=== PATIENT | male | born 1970 | race Caucasian/White ===

== ENCOUNTER 2018-01-22 06:37 | Inpatient (IN) | payer SELFPAY ==
[2018-01-22] VITALS (15 sets, daily range): BP systolic 105–138; BP diastolic 55–103; PULSE 85–105; RESP 14–28; TEMP 36.8–39.6; O2SAT 95–100; BMI 26.6; BMI 25.7
--- NOTE | 2018-01-22 07:20 | DI.RAD.S_ITS ---
PROCEDURE: XR CHEST 2V INDICATIONS: chest pain TECHNIQUE: 2 views of the chest were acquired. COMPARISON: None. FINDINGS: Surgical changes and devices: None. Lungs and pleura: No pleural effusions or pneumothorax. Lungs are abnormal with a mild bilateral pneumonia pattern, right slightly greater than left. Mediastinum: Mediastinal contours are normal. Heart size is normal. Bones and chest wall: No suspicious bony abnormalities. Soft tissues appear unremarkable. IMPRESSION: Bilateral basilar pneumonia, right greater than left. Alveolar infiltration, mild in overall severity, is present, and the appearance can be seen in the setting of atypical pneumonia including viral pneumonia. Dictated by: Niles Arriola M.D. on 01/22/2018 at 9:30 Approved by: Niles Arriola M.D. on 01/22/2018 at 9:31
--- NOTE | 2018-01-22 07:20 | DI.CT.S_ITS ---
PROCEDURE: CT SOFT TISSUE NECK W CON INDICATIONS: Peritonsillar abscess, retropharyngeal abscess may be present. Pt w/ trismus and fever TECHNIQUE: After the administration of intravenous contrast, 3.0 mm axial sections acquired from the sella to the aortic arch. Additional oblique axial 3.0 mm sections acquired through the pharynx. 3 mm thick coronal and sagittal reformats were generated. For radiation dose reduction, the following was used: automated exposure control. COMPARISON: [facility], CR, XR CHEST 2V, 01/22/2018, 6:59. FINDINGS: Image quality: Excellent. Lymph nodes: There is an increased number of small nodes and several mildly enlarged lymph nodes seen throughout the neck bilaterally. None of these appear centrally necrotic, several of them show slight edema along their margins in the adjacent fatty soft tissues. Vessels: Visualized vasculature appears patent. Neck spaces: The oropharynx, nasopharynx, and pharynx demonstrate no mucosal lesions. The vocal cords, false vocal cords, pyriform sinuses, epiglottis, vallecula, and tongue base all appear normal. Extramucosal spaces appear free of abscess formation but there is enlargement of the tonsillar pillars bilaterally, which appear heterogeneous internally, slightly greater in size on the right than the left, and enlarged overall. This does narrow this portion of the airway circumferentially, right greater than left. Glands: The parotid and submandibular glands appear normal on the right but the parotid gland is fatty atrophy of the left, chronic in appearance. Thyroid gland appears normal. Miscellaneous: Visualized brain and orbits appear normal. Lung apices appear clear. Superficial soft tissues appear normal. Note is made of generalized mucosal thickening involving the left maxillary sinus, without air fluid level. Bones: No suspicious bony lesions. Visualized sinuses and mastoids appear unremarkable. IMPRESSION: 1. Prominent asymmetric right greater than left peritonsillar soft tissue edema, narrowing the adjacent airway, with an appearance suggestive of soft tissue infection which has not progressed abscess formation. Early phlegmon is suspected as cause of the heterogeneity within the soft tissues in these areas. 2. There is adenopathy bilaterally, comprised of both an increased number of small nodes and several enlarged nodes measuring up to 1.6 cm in maximal short axis dimension. None of these nodes appear centrally necrotic, the appearance is more likely reactive to infection rather than malignant involvement. 3. Incidental load is made of generalized fatty atrophy of the left parotid gland. No associated ductal calculus or evidence of active inflammation is associated. The salivary glands elsewhere appear normal. Note: Findings immediately called to the emergency room and discussed in detail personally with the emergency room physician caring for the patient. Dictated by: Niles Arriola M.D. on 01/22/2018 at 9:13 Approved by: Niles Arriola M.D. on 01/22/2018 at 9:29
[2018-01-22] MEDS: SODIUM CHLORIDE 0.9% 1,000 ML 1000 ML IV ×2 (07:43→08:37)
[2018-01-22 07:49] LABS: Add Manual Diff / Slide Review NO; Basophils Percent Auto 0.4 % (0-2); Hematocrit 42.3 % (41-53); Hemoglobin 14.7 g/dL (13.5-17.5); Lymphocytes Percent Auto 7.4 % (25-40); Mean Corpuscular HGB Conc 34.7 % (30-36); Mean Corpuscular Hemoglobin 29.4 PG (26-34); Mean Corpuscular Volume 84.9 fL (80-100); Monocytes Percent Auto 9.4 % (3-14); Neutrophils Absolute Auto 17100 /uL (3000-5900); Neutrophils Percent Auto 82.8 % (50-75); Platelet Count 194 X10^3/uL (150-400); Red Blood Cell Count 4.99 X10^6/uL (4.5-5.9); Red Cell Distribution Width 13.3 % (11.6-14.8); White Blood Cell Count 20.7 X10^3/uL (4.5-11.0)
[2018-01-22 07:54] LABS: INR 1.6 (0.9-1.3); Prothrombin Time 17.4 SECONDS (10.1-12.7)
[2018-01-22] MEDS: PIPERACILLIN-TAZO 4.5 GM/100 ML FROZ.PIGGY IV (07:56)
--- NOTE | 2018-01-22 07:57 | PC.NURSE ---
starting IV Zosyn after two sets of blood cultures obtained. Flu swab from nasal obtained and sent out to lab.
[2018-01-22 08:00] LABS: Lactate (Lactic Acid) 0.8 mmol/L (0.7-2.1)
[2018-01-22 08:01] LABS: Alanine Aminotransferase 35 IU/L (21-72); Albumin 4.4 g/dL (3.5-5.0); Albumin Globulin Ratio 1.5 (1.0-2.8); Alkaline Phosphatase 84 U/L (38-126); Aspartate Aminotransferase 26 IU/L (17-59); Bilirubin Total 1.5 mg/dL (0.2-1.3); Blood Urea Nitrogen 16 mg/dL (9-20); Carbon Dioxide 23 mmol/L (22-32); Chloride 94 mmol/L (98-107); Estimated Glomerular Filt Rate > 60.0 mL/min (>60); Glucose 108 mg/dL (70-100); HEMOLYSIS < 15 (0-50); Lipase 14 U/L (23-300); Potassium 3.6 mmol/L (3.4-5.1); Sodium 131 mmol/L (137-145); Total Protein 7.4 g/dL (6.3-8.2)
[2018-01-22] MEDS: ACETAMINOPHEN 325 MG TABLET 650 MG PO ×3 (08:13→21:33)
[2018-01-22 08:16] LABS: Procalcitonin 0.44 ng/mL (<0.5)
[2018-01-22 08:17] LABS: Influenza A and B by PCR Rapid Negative (Negative)
--- NOTE | 2018-01-22 08:20 | PC.NURSE ---
pt has difficult time opening his mouth for exam with strong gag reflex. +strong foul breaths noticed. pt has rigor and shakes. T=102.5 when repeated.
[2018-01-22 09:19] LABS: Bilirubin Urine UA NEGATIVE (NEGATIVE); Color Urine UA YELLOW; Glucose Urine UA NEGATIVE (Normal); Ketones Urine UA 3+ (NEGATIVE); Leukocyte Esterase Urine UA NEGATIVE (NEGATIVE); Nitrite Urine UA Negative (Negative); Occult Blood Urine UA 2+ (Negative); Protein Urine UA 1+ (Negative); Urobilinogen Urine UA 0.2 E.U./dL (0.2); pH Urine UA 5.5 (4.5-8.0)
[2018-01-22 09:52] LABS: Appearance Urine UA Slightly Cloudy
--- NOTE | 2018-01-22 10:00 | PC.NURSE ---
Pt's roommate called and left a msg. Harriett, Pt's roommate called to ask questions on pt's mental status. Noticed, pt was seemed to be talking to himself and tends to startle frequetnly when assumed care of pt. Pt asked about auditory hallucinations, pt states they're all gone now. Pt oriented to place, person, but not person. Pt's temp improved and appears to be more alert when aroused from resting by verbal commands. Per pt's roommate Harriett, pt has hx of HIV POS but no hx of mental illness. Pt tends to get sick fast and recent hospitalization in OR for 1-2 days with flu in August. Harriett thinks pt has been current with his medications for HIV but pt denied any taking meds at this time. informed the above.
[2018-01-22 10:01] LABS: Bacteria Urine Few (2-10); Culture Indicated Urine Cult Not Indicated; RBC Urine 0-1/HPF (0-5/HPF); Squamous Epithelial Cell Urine 0-1 /HPF; WBC Urine 0-1/HPF (0-5/HPF)
--- NOTE | 2018-01-22 10:01 | ED_ITS ---
HPI - Fever General Chief Complaint: Fever Stated Complaint: Sore throat, vomiting Time Seen by Provider: 01/22/18 06:57 History of Present Illness HPI Narrative: HPI 47-year-old male with history of HLD (self terminated medications) presents for evaluation of 3-4 days of gradually progressive sore throat, cough, intermittent vomiting, fevers, shaking chills, and malaise. Denies dysuria, neck stiffness, rash, recent travel - although is visiting from [place] to show a dog. M/S/F/SocHx notable for: please see HPI; remainder reviewed with patient and in chart. ROS: Negative constitutional, eye, cardiovascular, pulmonary, GI, , MSK, skin , neurologic, psychiatric, endocrine unless noted in the HPI. Exam Gen: pleasant, unwell -appearing, laying on left side covered in blankets, shaking. HEENT: NC, AT, PEERL, EOMI, neck supple, no goiter appreciated. Unable to fully visualize posterior oropharynx, patient gagging, withdrawing, enclosing mouth, decreased job mobility, floor the mouth soft without swelling. Resp: Clear to auscultation bilaterally, normal work of breathing, no accessory muscle usage. Card: Regular rate and rhythm with no murmurs, rubs, or gallops, extremities warm and well perfused. GI: nontender, nondistended. : No suprapubic tenderness to palpation. MSK: No visible deformities, strength and tone without visually appreciable deficit. Skin: Normal color, no petechiae, no visible lesions. Neuro: AOx3, no facial asymmetry, vision and hearing WNL. Psych: Mood and affect appropriate. Labs / Imaging (pertinent): WBC 20.7, Hb 14.7, PLT 194, PT/INR 1.6, Na 131, K 3.6, Bilirubin 1.5, AST 26, ALT 35, Lactate 0.8, procalcitonin 0.44, lipase 14, influenza negative, TSH 0.60 , HIV pending. UA: negative bacteria, negative nitrites, negative leukocyte esterase, [address] neck (w/ contrast): 1. Prominent asymmetric right greater than left peritonsillar soft tissue edema , narrowing the adjacent airway, with an appearance suggestive of soft tissue infection which has not progressed abscess formation. Early phlegmon is suspected as cause of the heterogeneity within the soft tissues in these areas. 2. There is adenopathy bilaterally, comprised of both an increased number of small nodes and several enlarged nodes measuring up to 1.6 cm in maximal short axis dimension. None of these nodes appear centrally necrotic, the appearance is more likely reactive to infection rather than malignant involvement. 3. Incidental load is made of generalized fatty atrophy of the left parotid gland. No associated ductal calculus or evidence of active inflammation is associated. The salivary glands elsewhere appear normal. CXR: Bilateral basilar pneumonia, right greater than left. Alveolar infiltration, mild in overall severity, is present, and the appearance can be seen in the setting of atypical pneumonia including viral pneumonia. MDM Previous chart, nursing note, labs, imaging, and vitals reviewed. A: 47-year-old male with history of HLD (self terminated medications) presents for evaluation of 3-4 days of gradually progressive sore throat, cough, intermittent vomiting, fevers, shaking chills, and malaise. . Evaluation: Patient meets [facility] sepsis screening guidelines (T > 38?C or T < 36?C, HR > 90, RR > 20 or PaCO2 < 32 mmHg, WBC > 12k, < 4k, or >10% bands), source as below. DoesDoes not meet qSOFA criteria with a score of 1 - AMS, 1 - RR = 22, 1 - SBP < 100NOTE: = 2 is high risk for poor outcome. Infectious Source: patient of cough, sore throat, and mild trismus. Imaging with right-sided peritonsillar phlegmon, no evidence of Lemierre's disease or drainable abscess. Patient's roommate provided unsolicited information that patient is believed to have HIV, is not currently on medications. Patient denies a history of HIV, verbally consented to testing, pending at time of admission. Resuscitation: Blood cultures, 2 L NS, and 4.5 g Zosyn ordered with the initial evaluation. Disposition: admitted for further care. Impression: peritonsillar phlegmon, sepsis (please reference below for remainder of encounter information) Critical Care Time Organ system(s): Cardiopulmonary, vascular, TRAINING FACILITATOR, Renal Intervention: Assessment of the patient, interpretation of studies, communication related to patient care. Time: 30 minutes were spent directly related to patient care exclusive of separately billed procedures The patient is also without evidence of pancreatitis (lipase within clinically acceptable limits), adrenal insufficiency is tentatively considered unlikely as there is no evidence of chronic steroid use, no known adrenal insufficiency and the patient has been without refractory hypotension. Thyroid disease was considered, given the absence of known thyroid disease or goiter on exam, and a tentatively explaining etiology for the patient?s presentation further investigation is not currently indicated. Ingestion/OD are felt to be unlikely given history, absence of significant mydriasis, and lack of appreciated clonus or hyperreflexia, as well as an alternate explaining etiology.The possibility of alcohol, benzodiazepine, opiate withdrawal were considered and while history is limited at this point these do not appear to be contributing. Related Data Home Medications Medication Instructions Recorded Confirmed No Known Home Medications 01/22/18 01/22/18 Allergies Allergy/AdvReac Type Severity Reaction Status Date / Time No Known Drug Allergies Allergy Verified 01/22/18 07:05 [facility] Medical History High cholesterol (Acute) Exam Initial Vital Signs Initial Vital Signs: Vital Signs Temperature 100.2 F H 01/22/18 06:44 Pulse Rate 105 H 01/22/18 06:44 Respiratory Rate 28 H 01/22/18 06:44 Blood Pressure 138/103 H 01/22/18 06:44 Pulse Oximetry 99 01/22/18 06:44 Course Orders Ordered: ED Orders 01/22/18 07:20 CT soft tissue neck w con Stat XR chest 2V Stat 01/22/18 07:30 Complete Blood Count AUTO DIFF Stat Comprehensive Metabolic Panel Stat HIV 1 and 2 Antibody Stat Lactate (Lactic Acid) Stat Lipase Stat Procalcitonin Stat Prothrombin Time INR Stat Thyroid Stimulating Hormone Stat 01/22/18 07:50 Blood Culture Stat 01/22/18 07:55 Influenza A and B by PCR Rapid Stat 01/22/18 09:00 Urinalysis and Microscopic Stat Urine Drug Screen, Rapid Stat Discontinued Medications Acetaminophen (Tylenol) 650 mg PO NOW ONE Stop: 01/22/18 07:59 Last Admin: 01/22/18 08:13 Dose: 650 mg Piperacillin/Tazobactam/Dextrose (Zosyn) 4.5 gm in 100 mls @ 200 mls/hr IV NOW ONE Stop: 01/22/18 07:49 Last Infusion: 01/22/18 09:07 Dose: 0 mls/hr Admin: 01/22/18 07:56 Dose: 200 mls/hr Sodium Chloride (Normal Saline 0.9%) 1,000 mls @ 1,000 mls/hr IV BOLUS ONE Stop: 01/22/18 08:19 Last Infusion: 01/22/18 08:36 Dose: 0 mls/hr Admin: 01/22/18 07:43 Dose: 1,000 mls/hr Sodium Chloride (Normal Saline 0.9%) 1,000 mls @ 1,000 mls/hr IV BOLUS ONE Stop: 01/22/18 08:21 Last Infusion: 01/22/18 09:15 Dose: 0 mls/hr Admin: 01/22/18 08:37 Dose: 1,000 mls/hr Vital Signs - 8 hr 01/22/18 06:44 01/22/18 07:30 01/22/18 08:30 Temperature 100.2 F H 102.5 F H 100.7 F H Pulse Rate 105 H 105 H 103 H Respiratory Rate 28 H 20 15 Blood Pressure 138/103 H Blood Pressure [Left Arm] 136/71 H 113/69 Pulse Oximetry 99 98 98 01/22/18 09:45 Temperature 100.7 F H Pulse Rate Respiratory Rate Blood Pressure Blood Pressure [Left Arm] Pulse Oximetry MDM - Fever Lab Data Result diagrams: 01/22/18 07:30 01/22/18 07:30 Lab Results 01/22/18 01/22/18 01/22/18 Range/Units 07:30 07:30 07:30 WBC 20.7 H (4.5-11.0) X10^3/uL RBC 4.99 (4.5-5.9) X10^6/uL Hgb 14.7 (13.5-17.5) g/dL Hct 42.3 (41-53) % MCV 84.9 (80-100) fL MCH 29.4 (26-34) PG MCHC 34.7 (30-36) % RDW 13.3 (11.6-14.8) % Plt Count 194 (150-400) X10^3/uL Neut % (Auto) 82.8 H (50-75) % Lymph % (Auto) 7.4 L (25-40) % Evans % (Auto) 9.4 (3-14) % Eos % (Auto) 0.0 L (2-4) % Baso % (Auto) 0.4 (0-2) % Neut # (Auto) 79009 H (8889-5789) /uL PT 17.4 H (10.1-12.7) SECONDS INR 1.6 H (0.9-1.3) Sodium (137-145) mmol/L Potassium (3.4-5.1) mmol/L Chloride (98-107) mmol/L Carbon Dioxide (22-32) mmol/L BUN (9-20) mg/dL Creatinine (0.66-1.25) mg/dL Estimated GFR (>60) mL/min BUN/Creatinine Ratio (6-22) Glucose (70-100) mg/dL Lactate (0.7-2.1) mmol/L Calcium (8.4-10.2) mg/dL Total Bilirubin (0.2-1.3) mg/dL AST (17-59) IU/L ALT (21-72) IU/L Alkaline Phosphatase (38-126) U/L Total Protein (6.3-8.2) g/dL Albumin (3.5-5.0) g/dL Globulin (1.7-4.1) g/dL Albumin/Globulin Ratio (1.0-2.8) Lipase (23-300) U/L Procalcitonin 0.44 (<0.5) ng/mL TSH (0.47-4.68) uIU/mL Urine Color Urine Appearance Urine pH (4.5-8.0) Ur Specific [place] (1.000-1.035) Urine Protein (Negative) Urine Glucose (UA) (Normal) g/dL Urine Ketones (NEGATIVE) Urine Occult Blood (Negative) Urine Nitrate (Negative) Urine Bilirubin (NEGATIVE) Urine Urobilinogen (0.2) E.U./dL Ur Leukocyte Esterase (NEGATIVE) Urine RBC (0-5/HPF) Urine WBC (0-5/HPF) Ur Squamous Epith Cells Urine Bacteria (None) Ur Culture Indicated? Micro UA Comment Urine Opiates Screen (Negative) Ur Oxycodone Screen (Negative) Urine Methadone Screen (Negative) Ur Barbiturates Screen (Negative) U Tricyclic Antidepress (Negative) Ur Phencyclidine Scrn (Negative) Ur Amphetamines Screen (Negative) U Methamphetamines Scrn (Negative) Ur MDMA Scrn (Ecstasy) (Negative) U Benzodiazepines Scrn (Negative) Urine Cocaine Screen (Negative) U Marijuana (THC) Screen (Negative) Influenza A & B (PCR) (Negative) 01/22/18 01/22/18 01/22/18 Range/Units 07:30 07:30 07:30 WBC (4.5-11.0) X10^3/uL RBC (4.5-5.9) X10^6/uL Hgb (13.5-17.5) g/dL Hct (41-53) % MCV (80-100) fL MCH (26-34) PG MCHC (30-36) % RDW (11.6-14.8) % Plt Count (150-400) X10^3/uL Neut % (Auto) (50-75) % Lymph % (Auto) (25-40) % Evans % (Auto) (3-14) % Eos % (Auto) (2-4) % Baso % (Auto) (0-2) % Neut # (Auto) (0566-6046) /uL PT (10.1-12.7) SECONDS INR (0.9-1.3) Sodium 131 L (137-145) mmol/L Potassium 3.6 (3.4-5.1) mmol/L Chloride 94 L (98-107) mmol/L Carbon Dioxide 23 (22-32) mmol/L BUN 16 (9-20) mg/dL Creatinine 1.00 (0.66-1.25) mg/dL Estimated GFR > 60.0 (>60) mL/min BUN/Creatinine Ratio 16.0 (6-22) Glucose 108 H (70-100) mg/dL Lactate 0.8 (0.7-2.1) mmol/L Calcium 9.0 (8.4-10.2) mg/dL Total Bilirubin 1.5 H (0.2-1.3) mg/dL AST 26 (17-59) IU/L ALT 35 (21-72) IU/L Alkaline Phosphatase 84 (38-126) U/L Total Protein 7.4 (6.3-8.2) g/dL Albumin 4.4 (3.5-5.0) g/dL Globulin 3.0 (1.7-4.1) g/dL Albumin/Globulin Ratio 1.5 (1.0-2.8) Lipase 14 L (23-300) U/L Procalcitonin (<0.5) ng/mL TSH 0.60 (0.47-4.68) uIU/mL Urine Color Urine Appearance Urine pH (4.5-8.0) Ur Specific [place] (1.000-1.035) Urine Protein (Negative) Urine Glucose (UA) (Normal) g/dL Urine Ketones (NEGATIVE) Urine Occult Blood (Negative) Urine Nitrate (Negative) Urine Bilirubin (NEGATIVE) Urine Urobilinogen (0.2) E.U./dL Ur Leukocyte Esterase (NEGATIVE) Urine RBC (0-5/HPF) Urine WBC (0-5/HPF) Ur Squamous Epith Cells Urine Bacteria (None) Ur Culture Indicated? Micro UA Comment Urine Opiates Screen (Negative) Ur Oxycodone Screen (Negative) Urine Methadone Screen (Negative) Ur Barbiturates Screen (Negative) U Tricyclic Antidepress (Negative) Ur Phencyclidine Scrn (Negative) Ur Amphetamines Screen (Negative) U Methamphetamines Scrn (Negative) Ur MDMA Scrn (Ecstasy) (Negative) U Benzodiazepines Scrn (Negative) Urine Cocaine Screen (Negative) U Marijuana (THC) Screen (Negative) Influenza A & B (PCR) (Negative) 01/22/18 01/22/18 01/22/18 Range/Units 07:55 09:00 09:00 WBC (4.5-11.0) X10^3/uL RBC (4.5-5.9) X10^6/uL Hgb (13.5-17.5) g/dL Hct (41-53) % MCV (80-100) fL MCH (26-34) PG MCHC (30-36) % RDW (11.6-14.8) % Plt Count (150-400) X10^3/uL Neut % (Auto) (50-75) % Lymph % (Auto) (25-40) % Evans % (Auto) (3-14) % Eos % (Auto) (2-4) % Baso % (Auto) (0-2) % Neut # (Auto) (9961-9889) /uL PT (10.1-12.7) SECONDS INR (0.9-1.3) Sodium (137-145) mmol/L Potassium (3.4-5.1) mmol/L Chloride (98-107) mmol/L Carbon Dioxide (22-32) mmol/L BUN (9-20) mg/dL Creatinine (0.66-1.25) mg/dL Estimated GFR (>60) mL/min BUN/Creatinine Ratio (6-22) Glucose (70-100) mg/dL Lactate (0.7-2.1) mmol/L Calcium (8.4-10.2) mg/dL Total Bilirubin (0.2-1.3) mg/dL AST (17-59) IU/L ALT (21-72) IU/L Alkaline Phosphatase (38-126) U/L Total Protein (6.3-8.2) g/dL Albumin (3.5-5.0) g/dL Globulin (1.7-4.1) g/dL Albumin/Globulin Ratio (1.0-2.8) Lipase (23-300) U/L Procalcitonin (<0.5) ng/mL TSH (0.47-4.68) uIU/mL Urine Color Yellow Urine Appearance Slightly cloudy Urine pH 5.5 (4.5-8.0) Ur Specific [place] 1.010 (1.000-1.035) Urine Protein 1+ H (Negative) Urine Glucose (UA) Negative (Normal) g/dL Urine Ketones 3+ H (NEGATIVE) Urine Occult Blood 2+ H (Negative) Urine Nitrate Negative (Negative) Urine Bilirubin Negative (NEGATIVE) Urine Urobilinogen 0.2 (0.2) E.U./dL Ur Leukocyte Esterase Negative (NEGATIVE) Urine RBC 0-1/hpf (0-5/HPF) Urine WBC 0-1/hpf (0-5/HPF) Ur Squamous Epith Cells 0-1 /hpf Urine Bacteria Few (2-10) H (None) Ur Culture Indicated? Cult not indicated Micro UA Comment Not Reportable Urine Opiates Screen Negative (Negative) Ur Oxycodone Screen Negative (Negative) Urine Methadone Screen Negative (Negative) Ur Barbiturates Screen Negative (Negative) U Tricyclic Antidepress Negative (Negative) Ur Phencyclidine Scrn Negative (Negative) Ur Amphetamines Screen Negative (Negative) U Methamphetamines Scrn Negative (Negative) Ur MDMA Scrn (Ecstasy) Negative (Negative) U Benzodiazepines Scrn Negative (Negative) Urine Cocaine Screen Negative (Negative) U Marijuana (THC) Screen Negative (Negative) Influenza A & B (PCR) Negative (Negative) Discharge Plan Departure Prescriptions: No Action No Known Home Medications RF: 0
[2018-01-22 10:02] LABS: Urine Amphetamines Negative (Negative); Urine Barbiturates Negative (Negative); Urine Benzodiazepines Negative (Negative); Urine Cocaine Negative (Negative); Urine MDMA Negative (Negative); Urine Methadone Negative (Negative); Urine Methamphetamines Negative (Negative); Urine Morphine/Opi cutoff 2000 Negative (Negative); Urine Oxycodone Negative (Negative); Urine Phencyclidine Negative (Negative); Urine Tetrahydrocannabinol Negative (Negative); Urine Tricyclic Antidepressant Negative (Negative)
[2018-01-22 10:25] LABS: HIV 1 and 2 Antibody NEGATIVE (NEGATIVE)
--- NOTE | 2018-01-22 12:32 | PC.ADMIT ---
Admission Note: Arrived to rm 102 from ER via stretcher. Ambulated to bed, steady on feet and used urinal. Oriented to room and to call light/bed/tv controls. Cell phone and wallet at bedside, declines to lock up. Denies pain at this time. The patient,Jeevan Dawn,47 y/o, was given written information regarding hospital policies, unit procedures and contact persons. Patient's smoking status: . Vital Signs - 8 hr 01/22/18 06:44 01/22/18 07:30 01/22/18 08:30 Temperature 100.2 F H 102.5 F H 100.7 F H Pulse Rate 105 H 105 H 103 H Respiratory Rate 28 H 20 15 Blood Pressure 138/103 H Blood Pressure [Left Arm] 136/71 H 113/69 Pulse Oximetry 99 98 98 01/22/18 09:45 01/22/18 10:39 01/22/18 11:32 Temperature 100.7 F H 98.2 F Pulse Rate 96 H 85 Respiratory Rate 16 17 Blood Pressure 127/66 H Blood Pressure [Left Arm] 105/55 L Pulse Oximetry 97 96 01/22/18 11:45 Temperature 99.8 F H Pulse Rate 91 H Respiratory Rate 17 Blood Pressure 116/70 Blood Pressure [Left Arm] Pulse Oximetry 97
[2018-01-22] MEDS: DEXTROSE 5%-0.9% NS 1,000 ML 100 ML IV (12:54)
[2018-01-22] MEDS: AMPICILLIN/SULBACTAM 3 GM 3 GM in SODIUM CHLORIDE 0.9% 100 ML IV ×2 (13:23→21:33)
[2018-01-22] MEDS: PROCHLORPERAZINE 10 MG/2 ML VIAL 5 MG IV (14:26)
[2018-01-22] MEDS: VANCOMYCIN 1,000 MG/200 ML FROZ.PIGGY 200 MG IV ×2 (14:28→22:30)
--- NOTE | 2018-01-22 18:23 | PC.NURSE ---
[facility] Pt says he feels terrible. Pt is febrile; medicated with Tylenol. Pt restless, up to chair for a short time, ate a few bites of soup and crackers. Pt now in bed, snoring.
--- NOTE | 2018-01-22 18:39 | P.HP_ITS ---
History of Present Illness Chief complaint: Sore throat, vomiting Narrative: HISTORY WAS LIMITED THE PATIENT WAS UNABLE TO GIVE HISTORY BECAUSE OF DIFFICULTY SPEAKING BECAUSE OF HIS SORE THROAT. THEREFORE HISTORY IS PRIMARILY OBTAINED FROM THE ED PHYSICIAN AND MEDICAL RECORD THE PATIENT IS A 47-YEAR-OLD MALE WHO PRESENTED ON ADMISSION WITH SORE THROAT AND COUGH. THE PATIENT'S PROBLEM DATES BACK TO 3-4 DAYS PRIOR TO ADMISSION. OVER THIS TIME FRAME IS BEEN PROGRESSIVE SORE THROAT THE DEVELOPMENT OF COUGH AND INTERMITTENT FEVER. HE HAS ALSO ADMITTED TO RIGORS. HE DENIES SHORTNESS OF BREATH BREATHING DIFFICULTY OR DYSPHAGIA.. IN THE ED HE UNDERWENT SOFT TISSUE NECK CT WHICH REVEALED PROMINENT ASYMMETRIC RIGHT GREATER THAN LEFT PERITONSILLAR SOFT TISSUE EDEMA, NARROWING THE ADJACENT AIRWAY, WITH AN APPARENT SUGGESTION OF SOFT TISSUE INFECTION WHICH HAS NOT PROGRESSED TO ABSCESS FORMATION. EARLY PHLEGMON IS SUSPECTED A CAUSE OF THE HETEROGENICITY WITHIN THE SOFT TISSUES IN THIS AREA. HIS WBC COUNT WAS 20.7, INR 1.6, CHEM PANEL WITH A SODIUM 131 TOTAL BILI OF 1.5. A FRIEND HAD MENTIONED THAT THEY THOUGHT HE HAD HIV THE PATIENT DENIED THIS HIV 1/2 TITER WAS OBTAINED AND WAS NEGATIVE. THE PATIENT IS BEING ADMITTED FOR FURTHER MANAGEMENT OF HIS PERITONSILLAR PHLEGMON Patient History Family & Social History Social History: household members friend(s) Prior Living Arrangements House Safety & Behavioral: Feels Safe in Current Yes Environment Been Physically Hurt or No Threatened By a Person Suicidal Ideation Description None Suicide Plan Description No Plan Tobacco & Substance use: Tobacco type cigarettes Smoking Status Current every day smoker Smoking packs per day 1 alcohol intake current alcohol intake frequency 0-2 drinks per day Substance Use Type does not use Meds Home Medications Medication Instructions Recorded Confirmed Type No Known Home Medications 01/22/18 01/22/18 History Allergies Allergy/AdvReac Type Severity Reaction Status Date / Time No Known Drug Allergies Allergy Verified 01/22/18 07:05 Review of Systems Review of Systems All systems reviewed & are unremarkable except as noted in HPI and below Exam Vital Signs (past 8 hours): - 01/22/18 10:39 01/22/18 11:32 01/22/18 11:45 Temperature 98.2 F 99.8 F H Pulse Rate 96 H 85 91 H Respiratory Rate 16 17 17 Blood Pressure 127/66 H 116/70 Blood Pressure [Left Arm] 105/55 L Pulse Oximetry 97 96 97 01/22/18 15:00 01/22/18 15:30 01/22/18 15:46 Temperature 103.2 F H 100.0 F H 103.2 F H Pulse Rate 101 H Respiratory Rate 18 Blood Pressure 123/67 H Blood Pressure [Left Arm] Pulse Oximetry 96 100 Oxygen Delivery Method Room Air Oxygen Flow Rate 0 Narrative Exam Narrative: GENERAL: LOOKS UNCOMFORTABLE FROM HIS WILFRID TONSILLAR PHLEGMON Objective Labs Result Diagrams: 01/22/18 07:30 01/22/18 07:30 Labs: Laboratory Results - last 24 hr 01/22/18 01/22/18 01/22/18 07:30 07:30 07:30 WBC 20.7 H RBC 4.99 Hgb 14.7 Hct 42.3 MCV 84.9 MCH 29.4 MCHC 34.7 RDW 13.3 Plt Count 194 Neut % (Auto) 82.8 H Lymph % (Auto) 7.4 L [place] % (Auto) 9.4 Eos % (Auto) 0.0 L Baso % (Auto) 0.4 Neut # (Auto) 84414 H PT 17.4 H INR 1.6 H Sodium Potassium Chloride Carbon Dioxide BUN Creatinine Estimated GFR BUN/Creatinine Ratio Glucose Lactate Calcium Total Bilirubin AST ALT Alkaline Phosphatase Total Protein Albumin Globulin Albumin/Globulin Ratio Lipase Procalcitonin 0.44 TSH Urine Color Urine Appearance Urine pH Ur Specific [place] Urine Protein Urine Glucose (UA) Urine Ketones Urine Occult Blood Urine Nitrate Urine Bilirubin Urine Urobilinogen Ur Leukocyte Esterase Urine RBC Urine WBC Ur Squamous Epith Cells Urine Bacteria Ur Culture Indicated? Micro UA Comment Nasal Screen MRSA (PCR) Urine Opiates Screen Ur Oxycodone Screen Urine Methadone Screen Ur Barbiturates Screen U Tricyclic Antidepress Ur Phencyclidine Scrn Ur Amphetamines Screen U Methamphetamines Scrn Ur MDMA Scrn (Ecstasy) U Benzodiazepines Scrn Urine Cocaine Screen U Marijuana (THC) Screen HIV 1&2 Antibody Influenza A & B (PCR) 01/22/18 01/22/18 01/22/18 07:30 07:30 07:30 WBC RBC Hgb Hct MCV MCH MCHC RDW Plt Count Neut % (Auto) Lymph % (Auto) [place] % (Auto) Eos % (Auto) Baso % (Auto) Neut # (Auto) PT INR Sodium 131 L Potassium 3.6 Chloride 94 L Carbon Dioxide 23 BUN 16 Creatinine 1.00 Estimated GFR > 60.0 BUN/Creatinine Ratio 16.0 Glucose 108 H Lactate 0.8 Calcium 9.0 Total Bilirubin 1.5 H AST 26 ALT 35 Alkaline Phosphatase 84 Total Protein 7.4 Albumin 4.4 Globulin 3.0 Albumin/Globulin Ratio 1.5 Lipase 14 L Procalcitonin TSH 0.60 Urine Color Urine Appearance Urine pH Ur Specific [place] Urine Protein Urine Glucose (UA) Urine Ketones Urine Occult Blood Urine Nitrate Urine Bilirubin Urine Urobilinogen Ur Leukocyte Esterase Urine RBC Urine WBC Ur Squamous Epith Cells Urine Bacteria Ur Culture Indicated? Micro UA Comment Nasal Screen MRSA (PCR) Urine Opiates Screen Ur Oxycodone Screen Urine Methadone Screen Ur Barbiturates Screen U Tricyclic Antidepress Ur Phencyclidine Scrn Ur Amphetamines Screen U Methamphetamines Scrn Ur MDMA Scrn (Ecstasy) U Benzodiazepines Scrn Urine Cocaine Screen U Marijuana (THC) Screen HIV 1&2 Antibody Influenza A & B (PCR) 01/22/18 01/22/18 01/22/18 07:30 07:55 09:00 WBC RBC Hgb Hct MCV MCH MCHC RDW Plt Count Neut % (Auto) Lymph % (Auto) [place] % (Auto) Eos % (Auto) Baso % (Auto) Neut # (Auto) PT INR Sodium Potassium Chloride Carbon Dioxide BUN Creatinine Estimated GFR BUN/Creatinine Ratio Glucose Lactate Calcium Total Bilirubin AST ALT Alkaline Phosphatase Total Protein Albumin Globulin Albumin/Globulin Ratio Lipase Procalcitonin TSH Urine Color Yellow Urine Appearance Slightly cloudy Urine pH 5.5 Ur Specific [place] 1.010 Urine Protein 1+ H Urine Glucose (UA) Negative Urine Ketones 3+ H Urine Occult Blood 2+ H Urine Nitrate Negative Urine Bilirubin Negative Urine Urobilinogen 0.2 Ur Leukocyte Esterase Negative Urine RBC 0-1/hpf Urine WBC 0-1/hpf Ur Squamous Epith Cells 0-1 /hpf Urine Bacteria Few (2-10) H Ur Culture Indicated? Cult not indicated Micro UA Comment Not Reportable Nasal Screen MRSA (PCR) Urine Opiates Screen Ur Oxycodone Screen Urine Methadone Screen Ur Barbiturates Screen U Tricyclic Antidepress Ur Phencyclidine Scrn Ur Amphetamines Screen U Methamphetamines Scrn Ur MDMA Scrn (Ecstasy) U Benzodiazepines Scrn Urine Cocaine Screen U Marijuana (THC) Screen HIV 1&2 Antibody Negative Influenza A & B (PCR) Negative 01/22/18 01/22/18 09:00 11:45 WBC RBC Hgb Hct MCV MCH MCHC RDW Plt Count Neut % (Auto) Lymph % (Auto) [place] % (Auto) Eos % (Auto) Baso % (Auto) Neut # (Auto) PT INR Sodium Potassium Chloride Carbon Dioxide BUN Creatinine Estimated GFR BUN/Creatinine Ratio Glucose Lactate Calcium Total Bilirubin AST ALT Alkaline Phosphatase Total Protein Albumin Globulin Albumin/Globulin Ratio Lipase Procalcitonin TSH Urine Color Urine Appearance Urine pH Ur Specific [place] Urine Protein Urine Glucose (UA) Urine Ketones Urine Occult Blood Urine Nitrate Urine Bilirubin Urine Urobilinogen Ur Leukocyte Esterase Urine RBC Urine WBC Ur Squamous Epith Cells Urine Bacteria Ur Culture Indicated? Micro UA Comment Nasal Screen MRSA (PCR) Negative for mrsa Urine Opiates Screen Negative Ur Oxycodone Screen Negative Urine Methadone Screen Negative Ur Barbiturates Screen Negative U Tricyclic Antidepress Negative Ur Phencyclidine Scrn Negative Ur Amphetamines Screen Negative U Methamphetamines Scrn Negative Ur MDMA Scrn (Ecstasy) Negative U Benzodiazepines Scrn Negative Urine Cocaine Screen Negative U Marijuana (THC) Screen Negative HIV 1&2 Antibody Influenza A & B (PCR) Assessment & Plan Plan: Assessment/Plan Narrative: 1. PERITONSILLAR PHLEGMON PRESENTLY NOTHING TO DRAIN. IV ANTIBIOTICS CONSISTING OF UNASYN AND VANCOMYCIN WILL BE USED. PHARMACY WILL HELP WITH VANCOMYCIN DOSING 2. LEUKOCYTOSIS THIS IS SECONDARY TO HIS INFECTIOUS PROCESS WILL MONITOR HIS CBC 3. COAGULOPATHY HIS INR IS 1.6. THERE IS NO CLEAR-CUT ETIOLOGY. LIVER FUNCTION STUDIES ARE UNIMPRESSIVE. HE DOES HAVE A TOTAL BILI OF 1.6 BUT HIS TRANSAMINASES ARE WELL WITHIN NORMAL LIMITS AND HIS ALBUMIN IS 4.4. IS THEREFORE UNLIKELY THAT HE HAS ANY SYNTHETIC COMPROMISED PATIENT IS NOT ON ANY VITAMIN K ANTAGONIST WILL CHECK INR IN A.M. DISPOSITION ANTICIPATE A 3-5 DAY HOSPITAL STAY BECAUSE OF THE SIGNIFICANT PHLEGMON WITH PER CT SCAN SOME AIRWAY NARROWING AND THEREFORE NEED FOR CONTINUED OBSERVATION FOR ANY POTENTIAL SIGNIFICANT AIRWAY COMPROMISE. Quality VTE Deep Vein Thrombosis/Pulmonary Embolism Present on Admission: No
[2018-01-23] VITALS (15 sets, daily range): BP systolic 112–129; BP diastolic 63–69; PULSE 72–92; RESP 16–18; TEMP 36.6–39.1; O2SAT 95–98
[2018-01-23] MEDS: AMPICILLIN/SULBACTAM 3 GM 3 GM in SODIUM CHLORIDE 0.9% 100 ML IV ×4 (00:56→19:31)
[2018-01-23] MEDS: ACETAMINOPHEN 325 MG TABLET 650 MG PO ×4 (03:32→20:37)
[2018-01-23] MEDS: VANCOMYCIN 1,000 MG/200 ML FROZ.PIGGY 200 MG IV ×3 (03:40→20:36)
[2018-01-23] MEDS: DEXTROSE 5%-0.9% NS 1,000 ML 100 ML IV (05:39)
[2018-01-23 05:45] LABS: Hemoglobin 13.3 g/dL (13.5-17.5); Mean Corpuscular HGB Conc 34.9 % (30-36); Mean Corpuscular Hemoglobin 29.7 PG (26-34); Mean Corpuscular Volume 85.1 fL (80-100); Platelet Count 176 X10^3/uL (150-400); Red Blood Cell Count 4.47 X10^6/uL (4.5-5.9); Red Cell Distribution Width 13.2 % (11.6-14.8)
[2018-01-23 05:56] LABS: INR 1.4 (0.9-1.3); Prothrombin Time 15.7 SECONDS (10.1-12.7)
[2018-01-23 06:03] LABS: Alanine Aminotransferase 37 IU/L (21-72); Albumin 3.4 g/dL (3.5-5.0); Albumin Globulin Ratio 1.3 (1.0-2.8); Alkaline Phosphatase 71 U/L (38-126); Aspartate Aminotransferase 27 IU/L (17-59); BUN Creatinine Ratio 15.7 (6-22); Bilirubin Total 0.6 mg/dL (0.2-1.3); Blood Urea Nitrogen 11 mg/dL (9-20); Carbon Dioxide 25 mmol/L (22-32); Chloride 96 mmol/L (98-107); Estimated Glomerular Filt Rate > 60.0 mL/min (>60); Globulin 2.7 g/dL (1.7-4.1); Glucose 154 mg/dL (70-100); HEMOLYSIS < 15 (0-50); Potassium 3.4 mmol/L (3.4-5.1); Sodium 130 mmol/L (137-145); Total Protein 6.1 g/dL (6.3-8.2)
[2018-01-23 06:09] LABS: Neutrophils Absolute Manual 14940 /uL (3000-5900); Total Cells Counted 100
[2018-01-23] MEDS: ENOXAPARIN 40 MG/0.4 ML SYRINGE SUBCUT (09:29)
[2018-01-23] MEDS: NICOTINE 21 MG PATCH TOP (09:29)
--- NOTE | 2018-01-23 11:14 | PC.NURSE ---
Addendum entered by Vincent Wood R.N. 01/23/18 13:01: Called to . Reported pt cont c/o throat pain 11/27 despite tylenol administration and supportive measures. TORB for tylenol changed to q4h prn and lidocaine swish and swallow. Original Note: Pt reports chills. Assessed axillary temp 99.5. Administered tylenol per order. Pt noted to be resting comfortably in bed eyes closed without chills noted. Allowed to sleep. Will reassess temp with next set of VS and PRN symptoms. Addressed with Dr. Alegre on rounds who states she will re order tylenol q4hr PRN.
--- NOTE | 2018-01-23 12:01 | CM.DANOTE ---
DCP/Assessment: Reviewed chart. Patient is a 47yr old male admitted [facility] with sore throat and vomiting. WBC elevated and infection suspected. Patient currently has no insurance and no active PCP. Met with patient explained CM/SW role. Patient alert and oriented at time of visit. Patient reports that he is just in [place] for short period of time. 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 Patient resides in [place] and plans to return when medically stable. Patient confirms that he is without health insurance. Pt. reports that he previously had state health care in [place] but was taken off because the state told him I make too much. Patient aware that he will most likely have prescriptions that will need to be filled upon d/c from [facility] Encouraged patient to discuss generic options with MD prior to d/c. Patient agreeable. Patient denies any d/c planning needs and hopes to return to [place] soon. Name/number of CM team left on white board in patient room. Patient encouraged to call if questions arise. P: Home when stable. Patient reports that Amaya Brantley # [phone] is person to notify if patient unable to make medical decisions. Continue to follow closely. Unclear at this time if surgical intervention will be needed. KIERSTEN Taylor Discharge Planning/Care Management CM Discharge Assessment Start: 01/23/18 11:59 Freq: Status: Active Protocol: Document 01/23/18 11:59 KJKong (Rec: 01/23/18 12:01 ROSHAN [id number]) Discharge Planning Assessment Assigned Sales Representative [employer] KIERSTEN/Paola History Provided By Patient Has Patient been admitted in last 30 No days? Prior Living Arrangements House Household Members friend(s) Type of transporation used prior to Drives own vehicle admit Independent with ADL's Yes Is patient alert and oriented? Yes Caregiver for Another No Discharge Plan Home Transportation Arrangement Patient reports that local friend's can provide transport . Review Status In Process Next Review Type Continued Stay Review
[2018-01-23 12:31] LABS: Vancomycin Trough 7.1 ug/mL (10-20)
[2018-01-23] MEDS: LIDOCAINE VISCOUS 2% 15 ML SOLUTION PO (13:07)
--- NOTE | 2018-01-23 15:16 | PM.PN.1 ---
Subjective Date Patient Seen: 01/23/18 Interval history: Still with significant pain. Patient reports it hurts to swallow Exam Vital Signs (past 8 hours): 01/23/18 07:45 01/23/18 07:49 01/23/18 09:39 Temperature 99.5 F 99.5 F Pulse Rate 92 H Respiratory Rate 16 Blood Pressure 120/63 Pulse Oximetry 98 97 01/23/18 11:56 Temperature 98.7 F Pulse Rate 77 Respiratory Rate 16 Blood Pressure 118/68 Pulse Oximetry 98 Oxygen Delivery Method Room Air Oxygen Flow Rate 0 Narrative Exam Narrative: Neck: Tender anterior cervical nodes. Left submandibular lymph node palpable and tender, Left side of neck tender to palpation Lungs: Clear to auscultation CV: RRR nl S1S2 Abd: Soft/ non tender non distended Ext: no edema Objective Labs Result Diagrams: 01/23/18 04:43 01/23/18 04:43 Labs: Laboratory Results - last 24 hr 01/23/18 01/23/18 01/23/18 04:43 04:43 04:43 WBC 18.0 H RBC 4.47 L Hgb 13.3 L Hct 38.0 L MCV 85.1 MCH 29.7 MCHC 34.9 RDW 13.2 Plt Count 176 Total Counted 100 Seg Neutrophils % 83.0 H Lymphocytes % (Manual) 10.0 L Monocytes % (Manual) 7.0 Neutrophils # (Manual) 12778 H RBC Morphology . PT 15.7 H INR 1.4 H Sodium 130 L Potassium 3.4 Chloride 96 L Carbon Dioxide 25 BUN 11 Creatinine 0.70 Estimated GFR > 60.0 BUN/Creatinine Ratio 15.7 Glucose 154 H Calcium 8.0 L Total Bilirubin 0.6 AST 27 ALT 37 Alkaline Phosphatase 71 Total Protein 6.1 L Albumin 3.4 L Globulin 2.7 Albumin/Globulin Ratio 1.3 Vancomycin Trough 01/23/18 11:40 WBC RBC Hgb Hct MCV MCH MCHC RDW Plt Count Total Counted Seg Neutrophils % Lymphocytes % (Manual) Monocytes % (Manual) Neutrophils # (Manual) RBC Morphology PT INR Sodium Potassium Chloride Carbon Dioxide BUN Creatinine Estimated GFR BUN/Creatinine Ratio Glucose Calcium Total Bilirubin AST ALT Alkaline Phosphatase Total Protein Albumin Globulin Albumin/Globulin Ratio Vancomycin Trough 7.1 L Assessment & Plan (1) Peritonsillar abscess: Problem details: Patient has peritonsillar phelgmon. Agree with current antibiotic coverage. Will continue Unasyn and Vancomycin until afebrile. Will advance diet to clear liquid. Current visit: Yes Status: Acute (2) Hyponatremia: Problem details: IV hydration, will re check labs in am Current visit: Yes Status: Acute Quality VTE Deep Vein Thrombosis/Pulmonary Embolism Present on Admission: No
[2018-01-23] MEDS: KCL 20 MEQ IN NS 1,000 ML 100 MEQ IV (15:51)
--- NOTE | 2018-01-23 18:34 | PC.NURSE ---
jayjay note Pt looks much improved. Pt able to eat pudding and soup. Afebrile.
[2018-01-24] VITALS (9 sets, daily range): BP systolic 100–130; BP diastolic 55–67; PULSE 63–84; RESP 16–19; TEMP 36.3–37.3; O2SAT 95–98
[2018-01-24] MEDS: AMPICILLIN/SULBACTAM 3 GM 3 GM in SODIUM CHLORIDE 0.9% 100 ML IV ×4 (01:38→18:42)
[2018-01-24] MEDS: VANCOMYCIN 1,000 MG/200 ML FROZ.PIGGY 200 MG IV ×4 (02:39→20:03)
[2018-01-24 05:47] LABS: Add Manual Diff / Slide Review NO; Basophils Percent Auto 0.2 % (0-2); Eosinophils Percent Auto 0.9 % (2-4); Hemoglobin 13.3 g/dL (13.5-17.5); Lymphocytes Percent Auto 14.7 % (25-40); Mean Corpuscular HGB Conc 34.1 % (30-36); Mean Corpuscular Hemoglobin 29.1 PG (26-34); Mean Corpuscular Volume 85.4 fL (80-100); Monocytes Percent Auto 15.6 % (3-14); Neutrophils Absolute Auto 8300 /uL (3000-5900); Neutrophils Percent Auto 68.6 % (50-75); Platelet Count 180 X10^3/uL (150-400); Red Blood Cell Count 4.57 X10^6/uL (4.5-5.9); White Blood Cell Count 12.1 X10^3/uL (4.5-11.0)
[2018-01-24 05:51] LABS: Blood Urea Nitrogen 8 mg/dL (9-20); Calcium 8.4 mg/dL (8.4-10.2); Carbon Dioxide 30 mmol/L (22-32); Chloride 101 mmol/L (98-107); Estimated Glomerular Filt Rate > 60.0 mL/min (>60); Glucose 117 mg/dL (70-100); HEMOLYSIS < 15 (0-50); Potassium 3.8 mmol/L (3.4-5.1); Sodium 139 mmol/L (137-145)
[2018-01-24] MEDS: KCL 20 MEQ IN NS 1,000 ML 100 MEQ IV (05:55)
[2018-01-24] MEDS: NICOTINE 21 MG PATCH TOP (08:35)
[2018-01-24] MEDS: ACETAMINOPHEN 325 MG TABLET 650 MG PO ×2 (08:35→18:43)
[2018-01-24] MEDS: ENOXAPARIN 40 MG/0.4 ML SYRINGE SUBCUT (08:35)
[2018-01-24] MEDS: LIDOCAINE VISCOUS 2% 15 ML SOLUTION PO (09:24)
--- NOTE | 2018-01-24 09:35 | PC.NURSE ---
Addendum entered by Vincent Wood R.N. 01/24/18 13:55: MD on rounds at bedside. Discussed temps. Reported sputum production. MD states plan is to switch to PO abx once pt is afebrile. Plan to d/c IVFs. Pt instructed by MD to f/u outpt with ENT after discharge. Original Note: Pt up to sink brushing teeth. After rinsing and gargling, pt began gagging and expectorated a small, pink-tinged/white, amount of what appears to be sputum. Reports mild throat discomfort relieved by lidocaine and tylenol. Ambulates to shower room with steady gait and SBA. Had eggs and coffee for breakfast.
--- NOTE | 2018-01-24 10:29 | CM.DPC ---
DCP Cont: Per MD, pt is progressing quite well and not medically stable to d/c yet today. Per RN, pt is eating and still on IV-Abx but currently no fever and no identified concerns or needs. Plan: SW to follow for likely pt d/c home when medically stable. No SW needs at this time, please refer if indicated. KIERSTEN Hui
--- NOTE | 2018-01-24 14:08 | P.PN_ITS ---
Subjective Date Patient Seen: 01/24/18 Time Patient Seen: 14:05 Interval history: Patient is tolerating the mechanical soft diet. He continues to have rigors with fever. His last elevated temperature was last night. Still with some sore throat but overall improved. Exam Vital Signs (past 8 hours): - 01/24/18 08:00 01/24/18 08:36 01/24/18 12:00 Temperature 98.5 F 97.6 F Pulse Rate 82 84 Respiratory Rate 18 18 Blood Pressure 105/66 128/55 H Pulse Oximetry 98 96 96 Oxygen Delivery Method Room Air Oxygen Flow Rate 0 Narrative Exam Narrative: Neck: supple, slightly tender to palpation Lungs: Clear to auscultation CV: RRR nl Sl S2 Abd: Soft/non tender Ext: no edema Psych: normal mentation Objective Labs Result Diagrams: 01/24/18 04:49 01/24/18 04:49 Labs: Laboratory Results - last 24 hr 01/24/18 01/24/18 04:49 04:49 WBC 12.1 H RBC 4.57 Hgb 13.3 L Hct 39.0 L MCV 85.4 MCH 29.1 MCHC 34.1 RDW 13.0 Plt Count 180 Neut % (Auto) 68.6 Lymph % (Auto) 14.7 L [place] % (Auto) 15.6 H Eos % (Auto) 0.9 L Baso % (Auto) 0.2 Neut # (Auto) 8300 H Sodium 139 Potassium 3.8 Chloride 101 Carbon Dioxide 30 BUN 8 L Creatinine 0.80 Estimated GFR > 60.0 BUN/Creatinine Ratio 10.0 Glucose 117 H Calcium 8.4 Assessment & Plan (1) Peritonsillar abscess: Problem details: Patient has peritonsillar phelgmon. Agree with current antibiotic coverage. Will continue Unasyn and Vancomycin until afebrile. Continue mechanical soft diet. Will continue IV antibiotics until afebrile. Will heplock IV fluids today Current visit: Yes Status: Acute (2) High cholesterol: Current visit: No Status: Acute Quality VTE Deep Vein Thrombosis/Pulmonary Embolism Present on Admission: No
[2018-01-24 14:23] LABS: Vancomycin Trough 14.2 ug/mL (10-20)
--- NOTE | 2018-01-24 20:46 | PC.NURSE ---
Pt resting in bed. Reports APAP decreased throat discomfort. Denies need for swish. Pt has been a-febril this shift despite reporting feeling clammy for a short time. 97.9 temporal. Pt able to reposition self. Denies further need at this time. ABX infusing. Call light in reach.
[2018-01-25] VITALS: BP 103/45; PULSE 59; RESP 16; TEMP 36.2; O2SAT 97
[2018-01-25] MEDS: AMPICILLIN/SULBACTAM 3 GM 3 GM in SODIUM CHLORIDE 0.9% 100 ML IV ×2 (00:34→06:27)
[2018-01-25] MEDS: VANCOMYCIN 1,000 MG/200 ML FROZ.PIGGY 200 MG IV ×2 (01:38→07:32)
[2018-01-25 07:40] VITALS: BP 107/64; PULSE 61; RESP 18; TEMP 37.1; O2SAT 96
[2018-01-25 08:00] VITALS: O2SAT 98
[2018-01-25] MEDS: NICOTINE 21 MG PATCH TOP (08:55)
[2018-01-25] MEDS: ENOXAPARIN 40 MG/0.4 ML SYRINGE SUBCUT (08:55)
--- NOTE | 2018-01-25 13:04 | P.DS_ITS ---
History of Present Illness Date Patient Seen: 01/25/18 Time Patient Seen: 13:00 Chief complaint: Sore throat, vomiting Narrative: Patient presented with complaints of sore throat. CT Scan of neck confirmed a peritonsillar phelegmon without abscess formation. Patient was admitted to the hospital for IV antibiotics Discharge Providers Date of admission: 01/22/18 10:40 Discharge provider: Leann Alegre MD Summary Hospital Course: Patient was admitted and placed on IV antibiotics. He continued to have fevers for several days but then they subsided. He sore throat improved and he was able to tolerate a mechanical soft diet. Patient had improvement in his WBC and was deemed appropriate for discharge home. He lives in [place] and will establish care once he returns home for further evaluation. Status at Discharge Cognitive/behavioral status at discharge: Normal Functional status at discharge: independent ambulation Overall status at discharge: patient is back to baseline Time Spent with Patient Less than 30 minutes Exam Vital Signs (past 8 hours): - 01/25/18 07:40 01/25/18 08:00 Temperature 98.8 F Pulse Rate 61 Respiratory Rate 18 Blood Pressure 107/64 Pulse Oximetry 96 98 Oxygen Delivery Method Room Air Oxygen Flow Rate 0 Narrative Exam Narrative: Neck: supple, some tender submandibular adenotpathy Lungs: Clear to auscultation CV: RRR nl Sl S2 Abd: Soft/ non tender non distended Ext: no edema Objective Labs Result Diagrams: 01/24/18 04:49 01/24/18 04:49 Labs: Laboratory Results - last 24 hr 01/24/18 13:40 Vancomycin Trough 14.2 Discharge Plan Discharge Plan Patient Disposition: Home, Self-Care Discharge comment: Patient is ready for discharge home Provider Discharge Instructions Diet: Diet as Tolerated Activity: as tolerated Discharge Data Attending Provider: Hernando Alaniz Admit Date/Time: 01/22/18 10:40 Quality VTE Deep Vein Thrombosis/Pulmonary Embolism Present on Admission: No
--- NOTE | 2018-01-25 14:41 | CM.DPC ---
DCP Cont: Patient to be discharged home today. Is independent with his ambulation, and has family to pick him up. Is back to his baseline. P: Discharge home today. Starr Sandoval RN/[employer]
--- NOTE | 2018-01-25 14:53 | PC.NURSE ---
Addendum entered by Vincent Wood R.N. 01/25/18 15:22: Pt ambulated to front entrance to meet friend for ride home. JEW[employer] ST[employer]ER escorted pt to POV. No acute distress. Original Note: Pt to d/c home per MD orders. Removed 2 PIVs with cath tip intact. Reviewed d/c packet. Provided written educational material and reviewed with pt. Pt verbalizes understanding and voices no questions at this time. Prescriptions were brought to [facility] and filled. Pt states ride coming from [employer] at this time and will d/c when ride is here. He denies pain, acute distress.
[2018-01-25 16:58] LABS: Osmolality, Serum 282 mosm/kg (260-310)
== END 2018-01-25 15:00 | disposition home or self-care (01) | DRG 153 ==
LOC: ED 10:16 → ICU 10:41
PROVIDERS: Internal Medicine; Admitting Provider Internal Medicine; Emergency Provider Emergency Medicine; Visit Provider Internal Medicine
DX: J36 Peritonsillar abscess (principal); E87.1 Hypo-osmolality and hyponatremia; D68.9 Coagulation defect, unspecified; F17.210 Nicotine dependence, cigarettes, uncomplicated; R50.9 Fever, unspecified
CPT/HCPCS: 36415; 36591; 70491; 71046; 80048; 80053; 80202; 80305; 81001; 83605; 83690; 83930; 84145; 84443; 85025; 85610; 86703; 87040; 87400; 87797; 96361; 96365; 99284; 99285; 99406; J0295; J0780; J1650; J2543; J3370; Q9967